=== PATIENT | female | born 1970 | race Two or more races ===

== ENCOUNTER 2024-06-28 21:12 | Emergency (ER) | payer BC, OTHER, SELFPAY ==
--- NOTE | 2024-06-28 21:16 | EKG_ITS ---
[facility] Test Date: 2024-06-28 Pat Name: JOSE LUO Department: Room: - Gender: Female Pressure Washer: : 1970 Requested By: ED Temporary Provider Order Number: [id number] Reading MD: ED Temporary Provider Measurements Intervals [place] Rate: 77 P: 43 SC: 137 QRS: -21 QRSD: 86 T: 12 QT: 389 QTc: 442 Interpretive Statements SINUS RHYTHM LOW QRS VOLTAGE IN PRECORDIAL LEADS [QRS DEFLECTION < 1.0 mV IN CHEST LEADS] POSSIBLE ANTERIOR MYOCARDIAL INFARCTION , OF INDETERMINATE AGE [30 ms Q WAVE IN V3/V4, OR R < 0.2 mV IN V4] No previous ECG available for comparison /store/S0/[id number]/ecg/[id number].pdf
[2024-06-28 21:44] VITALS: BP 153/97; PULSE 81; RESP 20; TEMP 37; O2SAT 98
--- NOTE | 2024-06-28 22:04 | XR_ITS ---
Examination: Ribs, left, with PA chest, 4 views Technique: Chest PA, RIBS AP, RPO, LPO, 4 views Exam date and time: June 28, 2024 10:19 PM INDICATIONS: Injury to the left side of the chest and a left rib pain Findings: Minimal prominence left ventricle Subsegmental atelectasis left base. No pneumothorax. Prominent osteopenia. No acute rib fractures depicted IMPRESSION: No pneumothorax or pulmonary contusion. No acute rib fracture is depicted.
--- NOTE | 2024-06-28 22:23 | EDNOTE_ITS ---
ED Chest Pain RME/HPI General Chief Complaint: Fall Stated Complaint: FELL, LEFT RIB AREA PAIN, SOB Time Seen by Provider: 06/28/24 22:04 Arrival date/time: 06/28/24 21:12 54F with no significant PMH presents to ED with L rib pain after something heavy fell on it. There is also some SOB. Limitations: no limitations Related Data Previous Rx's ?Medication ?Instructions ?Recorded hydrocodone 5 mg-acetaminophen 325 1 tab PO BID PRN pa in #14 tabs 06/29/24 mg tablet Allergies Allergy/AdvReac Type Severity Reaction Status Date / Time No Known Allergies Allergy Verified 06/28/24 22:35 Review of Systems Review of Systems Systems Reviewed: All systems reviewed, normal except as documented Constitutional Constitutional: Reports system reviewed and no additional complaints, except as documented, Denies fever(s) and Denies headache(s) ENT Ears, Nose, Mouth, and Throat: Denies disequilibrium and Denies headache(s) Cardiovascular Cardiovascular: Reports system reviewed and no additional complaints, except as documented, Reports as per HPI, Reports chest pain and Reports dyspnea Respiratory Respiratory: Reports system reviewed and no additional complaints, except as documented, Denies cough and Reports dyspnea Gastrointestinal Gastrointestinal: Reports system reviewed and no additional complaints, except as documented, Denies abdominal pain, Denies nausea and Denies vomiting Neurologic Neurologic: Reports system reviewed and no additional complaints, except as documented, Denies confusion, Denies disequilibrium and Denies headache(s) Psychiatric Psychiatric: Denies confusion Past Medical History Social History SMOKING STATUS: Never smoker ED Exam General Limitations: Present no limitations General appearance: Present alert and in no apparent distress Head Head exam: Present atraumatic Eye Eye exam: Present normal appearance, PERRL and EOMI ENT ENT exam: Present normal exam, normal oropharynx and mucous membranes moist Neck Neck exam: Present normal inspection, full ROM and trachea midline Chest Chest inspection: Present symmetric chest wall rise and tenderness (L rib) Respiratory Respiratory exam: Present normal lung sounds bilaterally Cardiovascular Cardiovascular exam: Present regular rate, normal rhythm and normal heart sounds Abdominal Exam Abdominal exam: Present soft and normal bowel sounds Extremities Exam Extremities exam: Present normal inspection and full ROM Back Exam Back exam: Present normal inspection and full ROM Neurological Exam Neurological exam: Present alert, oriented X3 and CN II-XII intact Psychiatric Psychiatric exam: Present normal affect and normal mood Skin Skin exam: Present warm, dry, intact and normal color Course Quality Measures none Orders Category Date Time Status CT Screening NOW Care 06/29/24 00:13 Active EKG (ED ONLY) *Do not use* NOW Care 06/28/24 21:16 Completed Insert IV NOW Care 06/29/24 00:[address] chest abdomen pelvis w Stat Exams 06/29/24 00:[address] chest wo con Stat Exams 06/28/24 23:09 Completed EKG (ED Only) Stat Exams 06/28/24 21:16 Draft XR ribs LT min 3V w CXR1V Stat Exams 06/28/24 22:04 Completed CBC Stat Lab 06/29/24 00:41 Completed CMP [Comprehensive Metabolic Panel] Stat Lab 06/29/24 00:41 Completed Lipase Stat Lab 06/29/24 00:41 Completed HYDROcodone*/APAP 5/325 [[place] 5/325] Med 06/28/24 22:04 Discontinued 1 tab PO X1 ONE Morphine Inj Med 06/29/24 00:13 Discontinued 5 mg IVP X1 ONE Ondansetron Inj [Zofran Inj] Med 06/29/24 00:13 Discontinued 4 mg IV X1 ONE Vital Signs Vital signs: Vital Signs Temperature 98.6 F 06/28/24 21:44 Pulse Rate 81 06/28/24 21:44 Respiratory Rate 20 06/28/24 21:44 Blood Pressure 153/97 H 06/28/24 21:44 Pulse Oximetry (%) 98 06/28/24 21:44 Oxygen Delivery Method Room Air 06/28/24 21:44 O2 at 98% on RA and WNLs Chest Pain MDM Narrative MDM Narrative:: 54F with no significant PMH presents to ED with L rib pain after something heavy fell on it. There is also some SOB. Physical exam reveals L rib tenderness. Clear lungs, but restricted WOB since patient states it hurts. Patient is afebrile, calm, and alert. XR no fx. CT reveals nondisplaced 6-8th L rib fx. Patient also mass on pancreas, which patient is aware of. Patient had biopsy several years ago, which showed that it was benign. CT w/ contrast reveals likely pancreatic neoplasm with possible liver mets. Data Warehousing Specialist and meds given. Patient data External records reviewed:: None Clinical information provided by:: patient Social determinants that could affect healthcare access:: none Patient has the following chronic illnesses:: none How is presenting disease/condition affected by chronic disease/condition?: no chronic disease Evaluation data The following diagnostics were reviewed and interpreted by me:: radiology exam(s) Lab and/or radiology exams considered but not ordered:: ordered Interpretation Summary: above Medications / Prescriptions Medications or Prescriptions considered but not ordered:: ordered Medication administrations:: Medication Administration History Discontinued Medications Hydrocodone Bitart/Acetaminophen (Hydrocodone/Apap 5/325 Tablet) 1 tab PO X1 ONE Stop: 06/28/24 22:05 Last Admin: 06/28/24 22:37 Dose: 1 tab Documented By: Morphine Sulfate (Morphine Sulf Inj 10 Mg/Ml Vial) 5 mg IVP X1 ONE Stop: 06/29/24 00:14 Last Admin: 06/29/24 00:37 Dose: 5 mg Documented By: CVL Ondansetron HCl (Ondansetron Inj 2 Mg/Ml Inj 2 Ml) 4 mg IV X1 ONE; Protocol Stop: 06/29/24 00:14 Last Admin: 06/29/24 00:35 Dose: 4 mg Documented By: CVL above Consultations Consultation(s) initiated? (list below): No Diagnosis Chest Pain Differential Diagnosis: fracture of rib, pneumothorax, stable angina, unstable angina pectoris, atypical chest pain, st elevation myocardial infarction, costochondritis, chest pain, biliary colic and other (pancreatic mass) Most likely diagnosis given after review of the tests above:: pancreatic mass, and rib fx Admission Indicated Admission indicated?: not indicated Admission Request Was there a request for admission?: No Disposition Plan Disposition Plan: Discharge Discharge Attestation Discharge Attestation: The patient and all family members were given an opportunity to ask questions and understood the discharge instructions. Discharge instructions specifically effects, indications for sooner follow up or return to the emergency department, and the expected course of current diagnosis. Patient condition: Stable Discharge Plan Plan Patient Disposition: HOME (Self Care) Discharge Disposition comment: Stable Prescriptions/Referrals Prescriptions/Med Rec: New hydrocodone-acetaminophen 5-325 mg tablet 1 tab PO BID MDD 2 PRN (Reason: pain) Qty: 14 0RF Referrals: Maikol Funes MD [Primary Care Provider] - In 1 week Problem List Clinical Impression: Pancreatic mass, Fracture of rib Patient/Caregiver Discharge Instructions Education Materials: Pancreatic Cancer Tx Dc, ED Rib Fracture Additional Instructions: Please follow-up with PCP within 24-48 hours and return immediately if symptoms worsen. Can call Cancer Center on Monday or another oncologist if you prefer. Print Language: Georgian Stand Alone Forms: Patient Portal Info Letter PA/BUSINESS SUPPORT ASSOCIATE Supervising Physician YOHAN/RONALD Supervising Physician: Dr. Heart
[2024-06-28] MEDS: HYDROcodone/APAP 5/325 TABLET 1 TAB PO (22:37)
--- NOTE | 2024-06-28 23:09 | XR_ITS ---
Examination: CT chest, without intravenous contrast. Sagittal and coronal 2-D reconstructions. Exam date and time: June 28, 2024 11:30 PM INDICATIONS: Patient fell today with injury to the left chest, left rib pain CTDI:vol (mGy) 16.2 DLP: (mGycm) 548 Technique: Multiple 3.0 mm axial sections of the chest to been obtained. Bone and lung density settings are obtained. Sagittal and coronal 2-D reconstructions have been obtained. Low dose protocols were performed. One or more of the following dose reduction techniques were used; automated exposure control, adjustment of the mA and/or KV according to patient size, use of iterative reconstruction technique. Findings: The pulmonary arteries intact No hemopericardium No pneumothorax or hemothorax Mild atelectasis in left lower lung zone The manubria of the body of the sternum intact Thoracic vertebral bodies intact Acute fractures left sixth and seventh and eighth ribs anterolaterally without significant displacement 6 mm liver cyst No visualized liver splenic or renal laceration Partial visualization chronic mass contiguous with the head of the pancreas, at least 4.8 x 4.8 cm IMPRESSION: Thoracic aorta pulmonary arteries intact No pneumothorax Acute nondisplaced fractures left sixth, seventh, eighth ribs anterolaterally Partial visualization necrotic mass contiguous with the head of the pancreas, at least 4.8 x 4.8 cm, recommend CT scan abdomen and pelvis post intravenous contrast follow-up
--- NOTE | 2024-06-29 00:13 | XR_ITS ---
Examination: CT chest with intravenous contrast CT abdomen with intravenous contrast CT pelvis with intravenous contrast 2-D coronal and sagittal reconstructions Time of exam: June 29, 2024 0220 hours INDICATIONS: Mass contiguous with the pancreatic head on CT chest June 28, 2024, staging CTDI: vol (mGy) : 12.6 DLP: (mGycm): 864 Technique: Multiple axial images of the chest, abdomen and pelvis with intravenous contrast, 3.0 mm slice thickness. Images obtained post intravenous injection Isovue 370 60 cc. 2-D sagittal and coronal reconstructions. Low dose protocols were performed. One or more of the following dose reduction techniques were used; automated exposure control, adjustment of the mA and/or KV according to patient size, use of iterative reconstruction technique. Findings: No thoracic aortic aneurysmal dilatation No pulmonary artery filling defects No paratracheal tracheobronchial or bronchopulmonary adenopathy. No pneumonia or pulmonary edema No metastatic pulmonary nodules depicted 10 mm enhancing lesion upper anterior right lobe of the liver image 108 Spleen not enlarged Absent gallbladder Necrotic mass contiguous with the head of the pancreas, 5.2 x 5.0 x 4.2 cm with small subcentimeter peripancreatic lymph nodes Aorta is not enlarged No bowel obstruction Atrophic uterus Urinary bladder intact 1. Osteopenia IMPRESSION: Necrotic mass contiguous with the head of the pancreas most consistent with pancreatic carcinoma, 5.2 x 5.0 x 4.2 cm with peripancreatic lymph nodes Recommend MRI abdomen liver follow-up exam post contrast to confirm early hepatic metastasis
[2024-06-29] MEDS: ONDANSETRON INJ 2 MG/ML INJ 2 ML 4 MG IV (00:35)
[2024-06-29] MEDS: MORPHINE SULF INJ 10 MG/ML VIAL 5 MG IVP (00:37)
[2024-06-29 00:53] LABS: Basophils % (Auto) 0 % (0-2.5); Eosinophils # (Auto) 0.1 Thou/mm3 (0.0-0.5); Eosinophils % (Auto) 1 % (0-10); Hematocrit 45.6 % (36.0-46.0); Immature Granulocytes % (Auto) 0 % (0-0); Immature Granulocytes Auto 0.01 Thou/mm3 (0.00-0.00); Lymphocytes # (Auto) 2.3 Thou/mm3 (1.0-4.8); Lymphocytes % (Auto) 33 % (10-50); Mean Corpuscular HGB Conc 32.9 g/dl (31.0-37.0); Mean Corpuscular Hemoglobin 29.2 pg (25.0-35.0); Mean Corpuscular Volume 89 fL (80-100); Monocytes # (Auto) 0.5 Thou/mm3 (0.0-0.8); Monocytes % (Auto) 7 % (0-12); Neutrophils # (Auto) 4.2 Thou/mm3 (1.8-7.7); Neutrophils % (Auto) 59 % (37-80); Nucleated Red Blood Cell % 0 /100 WBC (0); Platelet Count 225 Thou/mm3 (140-440); Red Blood Count 5.13 Miln/mm3 (4.00-5.20); White Blood Count 7.1 Thou/mm3 (3.6-11.0)
[2024-06-29 01:16] LABS: Alanine Aminotransferase 20 U/L (10-49); Albumin, Serum 4.9 gm/dL (3.5-5.0); Albumin/Globulin Ratio 1.9 (1.2-2.2); Alkaline Phosphatase 134 U/L (46-116); Anion Gap 11 (7-16); Aspartate Amino Transferase 24 U/L (0-34); BUN/Creatinine Ratio 18 Ratio (12-20); Blood Urea Nitrogen 14 mg/dL (9-23); Calcium 9.2 mg/dL (8.3-10.6); Calcium (Corrected) 9.2 mg/dL (8.5-10.1); Carbon Dioxide 23.9 mMol/L (20.0-31.0); Chloride 112 mMol/L (98-107); Creatinine (Component) 0.8 mg/dL (0.6-1.3); Globulin 2.6 gm/dL (2.3-3.5); Glucose 101 mg/dL (74-106); Lipase 38 U/L (12-53); Osmolality,Calculated 292 (275-295); Sodium 147 mMol/L (136-145); Total Protein 7.5 gm/dL (5.7-8.2); eGFR > 60 See Note
--- NOTE | 2024-06-29 03:52 | PRELIM_ITS ---
CT scan of the chest, abdomen and pelvis with intravenous contrast (axial sections with sagittal and coronal reformats): June 29, 2024 at 0222 hours Clinical History: Necrotic mass on pancreas. Comparison: No prior study is available for comparison. Findings: Bibasilar streaky atelectasis is present. There is no pleural effusion or pneumothorax. The aorta is unremarkable without evidence of dissection or aneurysm. No evidence of mediastinal mass or lymphadenopathy. There is no pericardial effusion. There is a heterogeneously enhancing mass in the head and uncinate process of the pancreas (axial images 151-177/332), measuring 4.8 x 4.6 x 4.2 cm. Prominent peripancreatic nodes are seen. There is mild intra and extra hepatic biliary ductal dilatation. Common bile duct measures 6 mm. There is a cyst in the right lobe of the liver, measuring 7 mm. A small hypodense lesion is noted in the left lobe of liver, which is too small to characterize. A small nodular enhancing subcapsular lesion is seen in the right lobe of liver measuring 9 mm (axial image 108/332). The gallbladder is surgically absent. The spleen, adrenals and kidneys are unremarkable. Postoperative changes are seen in the stomach. There is a small hiatal hernia. No evidence of bowel obstruction. The appendix is within normal limits (axial images 208-233/332). The urinary bladder is unremarkable. There is no free fluid or air. Calcific densities are seen in the pelvis, likely representing phleboliths. Early degenerative changes are identified in the spine. Impression: 1. Findings consistent with pancreatic neoplasm with mild intra and extrahepatic biliary dilatation as described. Recommend follow up and further evaluation with MRCP as clinically indicated. 2. Small indeterminate nodular subcapsular enhancing lesion in the right lobe of liver, metastases cannot be excluded. Recommend follow up. 3. Other findings as described above. Report Electronically Signed By: You Hess 06/29/2024 3:52:03 AM [EST]
[2024-06-29 04:05] VITALS: BP 142/76; PULSE 72; RESP 18; TEMP 36.8; O2SAT 98
== END 2024-06-29 04:12 | disposition home or self-care (01) ==
PROVIDERS: Physician Assistant; Emergency Provider Emergency Medicine; PCP Family Medicine
DX: S22.42XA Multiple fractures of ribs, left side, initial encounter for closed fracture (principal); K86.89 Other specified diseases of pancreas; W20.8XXA Other cause of strike by thrown, projected or falling object, initial encounter
CPT/HCPCS: 36415; 71101; 71250; 71260; 74177; 80053; 83690; 85025; 93005; 96374; 96375; 99285; A4649; J2270; J2405; Q9967; A9270

== ENCOUNTER 2024-07-03 01:09 | Emergency (ER) | payer BC, MEDICAID, SELFPAY ==
[2024-07-03 02:11] VITALS: BP 141/101; PULSE 81; RESP 17; TEMP 36.7; O2SAT 95
[2024-07-03] MEDS: MORPHINE SULF INJ 10 MG/ML VIAL 5 MG IM (02:48)
[2024-07-03] MEDS: ONDANSETRON ODT 4 MG TABRAP PO (02:49)
--- NOTE | 2024-07-03 02:50 | EDNOTE_ITS ---
ED SOB =RME/HPI General Chief Complaint: Shortness of Breath/Dyspnea Stated Complaint: SOB FROM FRACTURE RIBS LEFT SIDE Time Seen by Provider: 07/03/24 02:37 Arrival date/time: 07/03/24 01:09 54F with no significant PMH presents to ED with L-sided CP and SOB, but no worse than initial visit several days ago here when she was diagnosed with 3 non- displaced L-sided rib fxs. Patient ran out of her pain meds. Limitations: no limitations Related Data Previous Rx's ?Medication ?Instructions ?Recorded hydrocodone 5 mg-acetaminophen 325 1 tab PO BID PRN pa in #14 tabs 06/29/24 mg tablet hydrocodone 5 mg-acetaminophen 325 1 tab PO BID PRN pa in #14 tabs 07/03/24 mg tablet Allergies Allergy/AdvReac Type Severity Reaction Status Date / Time No Known Allergies Allergy Verified 06/28/24 22:35 Review of Systems Review of Systems Systems Reviewed: All systems reviewed, normal except as documented Constitutional Constitutional: Reports system reviewed and no additional complaints, except as documented, Denies fever(s) and Denies headache(s) ENT Ears, Nose, Mouth, and Throat: Denies disequilibrium and Denies headache(s) Cardiovascular Cardiovascular: Reports system reviewed and no additional complaints, except as documented, Reports as per HPI, Reports chest pain and Reports dyspnea Respiratory Respiratory: Reports system reviewed and no additional complaints, except as documented, Denies cough and Reports dyspnea Gastrointestinal Gastrointestinal: Reports system reviewed and no additional complaints, except as documented, Denies abdominal pain, Denies nausea and Denies vomiting Neurologic Neurologic: Reports system reviewed and no additional complaints, except as documented, Denies confusion, Denies disequilibrium and Denies headache(s) Psychiatric Psychiatric: Denies confusion Past Medical History Past Medical History CARDIAC: Negative Cardiac Disorders or Congestive Heart Failure RESPIRATORY: Negative Chronic Obstructive Pulmonary Disease (COPD) or Asthma GENITOURINARY: Negative Renal Disease ENDOCRINE: Negative Diabetes Mellitus Type 1 or Diabetes Mellitus Type 2 HEMATOLOGIC: Negative Sickle Cell Disease Social History SMOKING STATUS: Never smoker ED Exam General Limitations: Present no limitations General appearance: Present alert and in no apparent distress Head Head exam: Present atraumatic Eye Eye exam: Present normal appearance, PERRL and EOMI ENT ENT exam: Present normal exam, normal oropharynx and mucous membranes moist Neck Neck exam: Present normal inspection, full ROM and trachea midline Chest Chest inspection: Present normal inspection and symmetric chest wall rise Respiratory Respiratory exam: Present normal lung sounds bilaterally Cardiovascular Cardiovascular exam: Present regular rate, normal rhythm and normal heart sounds Abdominal Exam Abdominal exam: Present soft and normal bowel sounds Extremities Exam Extremities exam: Present normal inspection and full ROM Back Exam Back exam: Present normal inspection and full ROM Neurological Exam Neurological exam: Present alert, oriented X3 and CN II-XII intact Psychiatric Psychiatric exam: Present normal affect and normal mood Skin Skin exam: Present warm, dry, intact and normal color Course Quality Measures none Orders Category Date Time Status Morphine Inj Med 07/03/24 02:40 Discontinued 5 mg IM X1 ONE Ondansetron Odt [Zofran Odt] Med 07/03/24 02:40 Discontinued 4 mg PO X1 ONE Vital Signs Vital signs: Vital Signs Temperature 98.1 F 07/03/24 02:11 Pulse Rate 81 07/03/24 02:11 Respiratory Rate 17 07/03/24 02:11 Blood Pressure 141/101 H 07/03/24 02:11 Pulse Oximetry (%) 95 07/03/24 02:11 Oxygen Delivery Method Room Air 07/03/24 02:11 O2 at 95% on RA and WNLs Shortness of Breath / Dyspnea MDM Narrative MDM Narrative:: 54F with no significant PMH presents to ED with L-sided CP and SOB, but no worse than initial visit several days ago here when she was diagnosed with 3 non- displaced L-sided rib fxs. Patient ran out of her pain meds. Physical exam reveals normal WOB. Patient is afebrile, calm, and alert. Meds and intake counselor given. Patient data External records reviewed:: [facility] previous records Clinical information provided by:: patient Social determinants that could affect healthcare access:: none Patient has the following chronic illnesses:: none How is presenting disease/condition affected by chronic disease/condition?: no chronic disease Evaluation data The following diagnostics were reviewed and interpreted by me:: other (specify) (none) Lab and/or radiology exams considered but not ordered:: not ordered Interpretation Summary: n/a Medications / Prescriptions Medications or Prescriptions considered but not ordered:: ordered Medication administrations:: Medication Administration History Discontinued Medications Morphine Sulfate (Morphine Sulf Inj 10 Mg/Ml Vial) 5 mg IM X1 ONE Stop: 07/03/24 02:41 Last Admin: 07/03/24 02:48 Dose: 5 mg Documented By: TRISTON Ondansetron HCl (Ondansetron Odt 4 Mg Tabrap) 4 mg PO X1 ONE; Protocol Stop: 07/03/24 02:41 Last Admin: 07/03/24 02:49 Dose: 4 mg Documented By: TRISTON above Consultations Consultation(s) initiated? (list below): No Diagnosis Shortness of Breath Differential Diagnosis: acute exacerbation of chronic obstructive airways disease, congestive heart failure, community acquired pneumonia, asthma with exacerbation, pulmonary embolism and other (rib fx) Most likely diagnosis given after review of the tests above:: rib fx Admission Indicated Admission indicated?: not indicated Admission Request Was there a request for admission?: No Disposition Plan Disposition Plan: Discharge Discharge Attestation Discharge Attestation: The patient and all family members were given an opportunity to ask questions and understood the discharge instructions. Discharge instructions specifically effects, indications for sooner follow up or return to the emergency department, and the expected course of current diagnosis. Patient condition: Stable Discharge Plan Plan Patient Disposition: HOME (Self Care) Discharge Disposition comment: Stable Prescriptions/Referrals Prescriptions/Med Rec: New hydrocodone-acetaminophen 5-325 mg tablet 1 tab PO BID MDD 2 PRN (Reason: pain) Qty: 14 0RF No Action hydrocodone-acetaminophen 5-325 mg tablet 1 tab PO BID MDD 2 PRN (Reason: pain) Qty: 14 0RF Referrals: Temporary Provider,ED [Primary Care Provider] - In 1 week Problem List Clinical Impression: Fracture of rib Patient/Caregiver Discharge Instructions Education Materials: Rib Fracture (Broken Rib) Additional Instructions: Please follow-up with PCP within 24-48 hours and return immediately if symptoms worsen. Print Language: Estonian Stand Alone Forms: Patient Portal Info Letter YOHAN/RONALD Supervising Physician YOHAN/RONALD Supervising Physician: Dr. Bronson
== END 2024-07-03 03:00 | disposition home or self-care (01) ==
LOC: SERX 03:32
PROVIDERS: Emergency Provider Emergency Medicine
DX: S22.42XA Multiple fractures of ribs, left side, initial encounter for closed fracture (principal); X58.XXXA Exposure to other specified factors, initial encounter; R06.02 Shortness of breath
CPT/HCPCS: 96372; 99283; J2270; Q0162